=== PATIENT | male | born 1940 | race Two or more races ===

== ENCOUNTER 2017-05-09 12:59 | Emergency (ER) | payer MEDICARE, OTHER ==
[2017-05-09 13:04] VITALS: BP 140/75; PULSE 55; RESP 16; TEMP 98; O2SAT 100
[2017-05-09] MEDS ORDERED: Lidocaine 1% w Epi 1:100,000 Inj INJ STA (13:18)
[2017-05-09] MEDS ORDERED: Amoxicillin-Clav 875-125 mg Tab PO STA (13:18)
--- NOTE | 2017-05-09 13:22 | ED PDOC ---
HPI: Wound Care - HPI Time Seen by Provider: 05/09/17 13:04 Chief Complaint (Nursing): Abnormal Skin Integrity Chief Complaint (Provider): Laceration History Per: Patient, EMS Exam Limitations: no limitations Onset/Duration Of Symptoms: Sudden Onset Current Symptoms Are (Timing): Still Present Location Of Injury: Left: Leg Severity: Moderate Additional Complaint(s): Ho Almeida is a 77 y/o male presenting to the ER on 05/09/2017 via EMS for a medical evaluation after sustaining a laceration to his left leg. Patient reports injury occurred as he was attempting to carry a bag of books when one of them fell directly on to his leg. Patient offers no other medical complaints at this time. He states his last tetanus shot was within the past five years. Patient is not allergic to any known drugs. Past Medical History Reviewed: Historical Data, Nursing Documentation, Vital Signs Vital Signs: Last Vital Signs Temp 98.0 F 05/09/17 13:02 Pulse 55 L 05/09/17 13:02 Resp 16 05/09/17 13:02 BP 140/75 05/09/17 13:02 Pulse Ox 100 05/09/17 13:02 - Medical History PMH: CAD, HTN - Surgical History Surgical History: Appendectomy, Coronary Stent - Family History Family History: States: No Known Family Hx - Living Arrangements Living Arrangements: Alone - Social History Ex-Smoker (has not smoked in the last 12 months): Yes (has not smoked in the last 15 years ) Alcohol: Occasional Drugs: Denies - Immunization History Hx Tetanus Toxoid Vaccination: Yes - Home Medications Home Medications: Ambulatory Orders Medication Instructions Recorded Amoxicillin/Clavulanate [Augmentin 1 tab PO BID #14 tab 05/09/17 875 MG-125 MG] - Allergies Allergies/Adverse Reactions: Allergies Allergy/AdvReac Type Severity Reaction Status Date / Time No Known Allergies Allergy Verified 05/09/17 13:01 Review of Systems ROS Statement: Except As Marked, All Systems Reviewed And Found Negative Musculoskeletal: Positive for: Other ((+) laceration on left leg ) Neurological: Negative for: Weakness, Numbness Physical Exam - Reviewed Nursing Documentation Reviewed: Yes Vital Signs Reviewed: Yes - Physical Exam Appears: Positive for: Well, Non-toxic, No Acute Distress Skin: Positive for: Normal Color Eye Exam: Positive for: Normal appearance Extremity: Positive for: Normal ROM, Other ((+) 6.0 cm vertical laceration to the left davis w/ mildly active bleeding, flap noted distally, full range of motion left lower extremity with normal distal sensation). Negative for: Tenderness, Deformity, Swelling Neurologic/Psych: Positive for: Alert, Oriented - ECG O2 Sat by Pulse Oximetry: 100 Pulse Ox Interpretation: Normal - Other Rad Left tib/fib X-Ray: Interpreted by Me, Viewed By Me X-Ray Interpretation: no fx, no dis, no radiopaque FB Medical Decision Making Medical Decision Makin:04 Initial Impression- 77 y/o male with a laceration to the left lower extremity Initial Plan- * XR Left Tibia/Fibula * Augmentin 1 tab PO * Lidocaine 20 ml Injection for lac repair 14:30 PROCEDURE: LACERATION REPAIR Performed by the emergency provider Location: Left davis Length: 6.0 cm Distal CMS: Normal. No deficits. Neurovascularly intact. Anesthesia: Lidocaine 1% Preparation: The wound was cleaned with NS and [place]. The area was prepped and draped in the usual sterile fashion. Exploration: The wound was explored and no foreign bodies were found. Procedure: The wound was closed with 3 simple interrupted stitches at the distal flap portion of the wound, with the remaining repair completed with a running suture Post-Procedure: Good closure and hemostasis. The patient tolerated the procedure well and there were no complications. Post procedure dressing applied. Patient was instructed to take Tylenol for pain and was given prescription for Augmentin. Advised wound check in 2-3 days and suture removal in 14 days. Documented by Prashant Rocha, acting as a scribe for Awilda Valverde PA-C All medical record entries made by the Scribe were at my direction and personally dictated by me. I have reviewed the chart and agree that the record accurately reflects my personal performance of the history, physical exam, medical decision making, and the department course for this patient. I have also personally directed, reviewed, and agree with the discharge instructions and disposition. Disposition - Clinical Impression Clinical Impression: Leg laceration - Patient ED Disposition Is Patient to be Admitted: No Counseled Patient/Family Regarding: Studies Performed, Diagnosis, Need For Followup, Rx Given - Disposition Referrals: [facility] [Outside] Disposition: Routine/Home Disposition Time: 14:50 Condition: STABLE Additional Instructions: Keep bandage in place for 24 hours, after 24 hours bandage and wash area gently with soap and water. Apply Neosporin once per day and reapply bandage. Take Tylenol for pain as needed, take prescription antibiotics as directed. Wound check 2-3 days, suture removal 14 days. Prescriptions: Amoxicillin/Clavulanate [Augmentin 875 MG-125 MG] 1 tab PO BID #14 tab Instructions: Care For Your Stitches (ED), Laceration (ED)
--- NOTE | 2017-05-09 15:07 | RAD ---
PROCEDURE: Radiographs of the left tibia and fibula. HISTORY: trauma COMPARISON: No prior TECHNIQUE: Frontal and lateral views obtained. FINDINGS: BONES: No definitive radiographic evidence of acute displaced fracture nor dislocation. Osseous structures intact. No cortical destructive changes. No significant soft tissue swelling. Nose subcutaneous air. Additionally, there appears to be small medium-sized posterior calcaneal enthesophyte. JOINT SPACES: Degenerative changes of the left knee. OTHER FINDINGS: None. IMPRESSION: Unremarkable radiographs of the left tibia and fibula. No acute fracture seen. Mild DJD left knee.
== END 2017-05-09 14:55 | disposition home or self-care (01) ==
LOC: H.ER 12:59
DX: S81.812A Laceration without foreign body, left lower leg, initial encounter (principal); W20.8XXA Other cause of strike by thrown, projected or falling object, initial encounter; Y93.89 Activity, other specified; Y92.9 Unspecified place or not applicable